=== PATIENT | male | born 1990 | race Caucasian/White ===

== ENCOUNTER 2021-06-01 23:57 | Inpatient (IN) | payer SELFPAY ==
[~2021-06-01] VITALS: Ht 190.5 cm; Wt 147.4 kg
--- NOTE | 2021-06-02 00:10 | NUR ---
PATIENT C/O RIGHT UPPER ABDOMINAL PAIN RADIATING TO THE RIGHT LOWER BACK, 2 x HOURS AGO. PATIENT TOOK 2 TABLETS OF TYLENOL 2 x HRS AGO WELL. PATIENT A/OX 4, RR EVEN AND UNLABORED, NO SOB NOTED. VSS, PATIENT CONNECTED TO MONITOR. WILL CONTINUE TO MONITOR.
[2021-06-02] MEDS ORDERED: ONDANSETRON HCL/PF 4 MG/2 ML VIAL IVP ONE (00:30)
[2021-06-02] MEDS ORDERED: MORPHINE SULFATE INJ 2 MG/ML DISP.SYRIN IV ONE ×2 (00:30→03:00)
[2021-06-02] MEDS ORDERED: IV NS 0.9% 1,000 ML BAG IV ONE (00:30)
[2021-06-02 00:37] LABS: BILIRUBIN,URINE Negative (NEGATIVE); COLOR,URINE YELLOW (YELLOW); LEUKOCYTE ESTERASE ,URINE Negative (NEGATIVE); NITRITE, URINE Negative (NEGATIVE); PROTEIN,URINE Negative (NEGATIVE); UGLUCOSE Negative (NEGATIVE)
[2021-06-02] MEDS ORDERED: MORPHINE SULFATE INJ 4 MG/ML DISP.SYRIN ONE ×2 (00:41→02:58)
[2021-06-02] MEDS ORDERED: ONDANSETRON HCL/PF 4 MG/2 ML VIAL ONE (00:41)
[2021-06-02 00:42] LABS: BASOPHILS % (AUTO) 0.6 % (0.0-2.0); EOSINOPHILS % (AUTO) 2.9 % (0.0-6.0); HEMATOCRIT 48 % (39-51); HEMOGLOBIN 16.3 g/dL (13.5-17.5); LYMPHOCYTES # (AUTO) 1.6 K/uL (0.8-4.8); LYMPHOCYTES % (AUTO) 20.5 % (20.0-44.0); MEAN CORPUSCULAR HGB CONC 34 g/dl (31.0-36.0); MEAN CORPUSCULAR VOLUME 90 fL (80-96); MONOCYTES # (AUTO) 0.5 K/uL (0.1-1.30); MONOCYTES % (AUTO) 6.3 % (2.0-12.0); NEUTROPHILS # (AUTO) 5.4 K/uL (1.8-8.9); NEUTROPHILS % (AUTO) 69.7 % (43.0-81.0); PLATELET COUNT (AUTO) 194 K/uL (150-450); RED BLOOD CELL COUNT(AUTO) 5.37 MIL/uL (4.5-6.0); WHITE BLOOD COUNT (AUTO) 7.7 K/uL (4.3-11.0)
[2021-06-02 00:50] LABS: CALCIUM, SERUM 8.7 mg/dL (8.5-10.1); CARBON DIOXIDE 28 mmol/L (21-32); CHLORIDE 102 mmol/L (98-107); CREATININE 1.3 mg/dL (0.6-1.3); GLUCOSE 118 mg/dL (74-106); SODIUM SERUM 138 mmol/L (136-145); UREA NITROGEN, BLOOD 17 mg/dL (7-18)
[2021-06-02 00:56] LABS: ALANINE AMINOTRANSFERASE 53 U/L (12-78); ALBUMIN 3.9 g/dL (3.4-5.0); ALKALINE PHOSPHATASE 60 U/L (46-116); ASPARTATE AMINOTRANSFERASE 23 U/L (15-37); BILIRUBIN,DIRECT 0.1 mg/dL (0.0-0.2); BILIRUBIN,TOTAL 0.3 mg/dL (0.2-1.0); LIPASE 140 U/L (73-393); TOTAL PROTEIN, SERUM 7.4 g/dL (6.4-8.2)
--- NOTE | 2021-06-02 01:16 | NUR ---
PATIENT TAKEN TO CT
--- NOTE | 2021-06-02 01:50 | NUR ---
US AT BEDSIDE
--- NOTE | 2021-06-02 02:49 | NUR ---
COVID SWAB RAPID COLLECTED AND SENT TO THE LAB.
--- NOTE | 2021-06-02 03:01 | NUR ---
CALLED NURSING SUP FOR BED
[2021-06-02] MEDS ORDERED: MAG HYDROX/AL HYDROX/SIMETH 30 ML UDC PO PRN (03:30)
[2021-06-02] MEDS ORDERED: ONDANSETRON HCL/PF 4 MG/2 ML VIAL IVP PRN (03:30)
[2021-06-02] MEDS ORDERED: PIPERACILLIN /TAZOBACTAM 3.375 G in IV D5W 50 ML IV SCH ×2 (03:46→12:00)
--- NOTE | 2021-06-02 04:22 | NUR ---
REPORT GIVEN TO ALESSANDRO GUPTA
[2021-06-02 04:35] VITALS: BP 148/89
--- NOTE | 2021-06-02 04:35 | NUR ---
PATIENT TRANSFERRED TO ROOM 327
[2021-06-02 05:11] VITALS: BP 148/89
--- NOTE | 2021-06-02 05:35 | NUR ---
MS RN NOTES REPORT GOTTEN FROM [facility]. PATIENT TRANSFERRED VIA STRETCHER. A/OX4. NO S/S OF APPARENT DISTRESS, TOLERATING ROOM AIR. PAIN TOLERABLE AT THE MOMENT. V/S FOLLOW: 148/89; P-73, RR-20, T- 97.8, AND SATING AT 99%. 325 LBS. WILL CONT. TO MONITOR.
[2021-06-02] MEDS: HYDROMORPHONE INJ 2 MG/ML DISP.SYRIN IV PRN ×2 (05:37→23:16)
[2021-06-02] MEDS: IV NS 0.9% 1,000 ML IV PRN (05:57)
--- NOTE | 2021-06-02 07:09 | NUR ---
MS RN CLOSING NOTE PATIENT IN BED WITH EYES CLOSED, EASY TO AROUSE. A/OX4. NO S/S OF APPARENT DISTRESS. PAIN MANAGED BY MEDICATION. IV NS RUNNING @75ML/HR. ALL NEEDS ATTENDED. CALL LIGHT WITHIN REACH. WILL ENDORSE CARE TO AM SHIFT RN.
--- NOTE | 2021-06-02 07:54 | NUR ---
RN MS OPENING NOTE PATIENT IS IN BED RESTING, PATIENT IS IN NO ACUTE DISTRESS. PATIENT IS ON ROOM AIR, SATURATING WELL. PATIENT IS KEPT NPO FOR NOW, UNTIL FURTHER ORDERS. SAFETY PRECAUTIONS ARE ON, BED IS LOCKED IN THE LOWEST POSITION, WITH SIDE RAILS UP, CALL LIGHT WITHIN REACH, WILL CONTINUE TO MONITOR CLOSELY.
[2021-06-02 08:00] VITALS: BP 133/77
[2021-06-02] MEDS: DOCUSATE SODIUM 100 MG CAPSULE PO SCH ×2 (08:19→17:00)
[2021-06-02] MEDS: PANTOPRAZOLE 40 MG VIAL IV SCH (08:19)
[2021-06-02] MEDS: PIPERACILLIN /TAZOBACTAM 3.375 G in IV D5W 100 ML IV SCH ×2 (10:07→17:20)
[2021-06-02 16:00] VITALS: BP 124/69
--- NOTE | 2021-06-02 18:36 | NUR ---
RN MS CLOSING NOTE PATIENT IS IN BED RESTING, PATIENT IS IN NO ACUTE DISTRESS. PATIENT IS ON ROOM AIR, SATURATING WELL. PATIENT IS KEPT NPO FOR NOW, UNTIL FURTHER ORDERS. SAFETY PRECAUTIONS ARE ON, BED IS LOCKED IN THE LOWEST POSITION, WITH SIDE RAILS UP, CALL LIGHT WITHIN REACH, ENDORSE PATIENT TO HEATING ELEMENT BUILDER NURSE.
--- NOTE | 2021-06-02 19:10 | NUR ---
NM: HIDA SCAN WAS COMPLETED. TECH:RB
[2021-06-02 20:00] VITALS: BP 139/91
--- NOTE | 2021-06-02 20:00 | NUR ---
Patient is A&Ox4. C/o only mild abdominal pain at this time 02/07 reports as tolerable. IVF infusing to L hand #20G. Nuclear medicine called to read NM HIDA "consistent with cystic duct obstruction and acute cholecystitis". MD Sanders then called with results with new order for Laparoscopic cholecystectomy possible open 06/03 at 0730. Notified patient, initiate consents.
[2021-06-03] MEDS: PIPERACILLIN /TAZOBACTAM 3.375 G in IV D5W 100 ML IV SCH ×3 (01:53→16:59)
[2021-06-03] MEDS: HYDROMORPHONE INJ 2 MG/ML DISP.SYRIN IV PRN (03:39)
[2021-06-03] MEDS: IV NS 0.9% 1,000 ML IV PRN (06:41)
--- NOTE | 2021-06-03 06:54 | NUR ---
Patient is A&Ox4. VSS. Been NPO for more than 24 hours. Abdominal pain relieved by PRN dilaudid. Tolerating IV ABX and fluids well. No overnight events. #20G to L hand patent and intact. Bs in AM 106. Checklist and consents completed.
[2021-06-03] MEDS ORDERED: ANESTHESIA TRAY IN PYXIS 1 EA TRAY MC ONE (07:05)
[2021-06-03] MEDS ORDERED: BUPIVACAINE MPF 0.5% W/EPI INJ 30 ML VIAL ONE (07:05)
[2021-06-03] MEDS ORDERED: LIDOCAINE 1% INJ 50 ML MDV IJ ONE (07:05)
[2021-06-03 07:17] LABS: BASOPHILS % (AUTO) 0.6 % (0.0-2.0); EOSINOPHILS % (AUTO) 2.5 % (0.0-6.0); HEMATOCRIT 49 % (39-51); HEMOGLOBIN 16.3 g/dL (13.5-17.5); LYMPHOCYTES % (AUTO) 15.1 % (20.0-44.0); MEAN CORPUSCULAR HGB CONC 34 g/dl (31.0-36.0); MEAN CORPUSCULAR VOLUME 92 fL (80-96); MONOCYTES # (AUTO) 0.7 K/uL (0.1-1.30); MONOCYTES % (AUTO) 10.2 % (2.0-12.0); NEUTROPHILS # (AUTO) 4.7 K/uL (1.8-8.9); NEUTROPHILS % (AUTO) 71.6 % (43.0-81.0); PLATELET COUNT (AUTO) 187 K/uL (150-450); WHITE BLOOD COUNT (AUTO) 6.6 K/uL (4.3-11.0)
[2021-06-03] MEDS ORDERED: HYDROMORPHONE INJ 2 MG/ML DISP.SYRIN ONE (07:21)
[2021-06-03] MEDS ORDERED: ROCURONIUM BROMIDE 50 MG/5 ML ONE (07:21)
--- NOTE | 2021-06-03 07:23 | NUR ---
RN OPENING NOTE PATIENT RECEIVED IN BED AO X 4, ABLE TO RESPONDS ALL STIMULI. PATIENT LEFT PROCEDURE, KEEP NPO. NO S/S OF DISTRESS OBSERVED. SKIN IS WARM TO TOUCH, KEEP CLEAN/DRY. RESPIRATORY EVEN AND UNLABORED ON ROOM AIR. WILL CONTINUE TO MONITOR.
[2021-06-03 07:32] LABS: CALCIUM, SERUM 8.6 mg/dL (8.5-10.1); CREATININE 1.4 mg/dL (0.6-1.3); POTASSIUM 3.8 mmol/L (3.5-5.1)
[2021-06-03] MEDS ORDERED: BACITRACIN ZINC OINT PACKET 1 EA PACKET TP ONE (09:02)
--- NOTE | 2021-06-03 09:40 | NUR ---
PATIENT BACK FROM PROCEDURE AND STABLE VITAL SING, RECEIVED REPORT BY PAT/RN.
[2021-06-03 09:45] VITALS: BP 126/63
[2021-06-03 09:54] VITALS: BP 137/90
[2021-06-03] MEDS: PANTOPRAZOLE 40 MG VIAL IV SCH (10:13)
[2021-06-03] MEDS: DOCUSATE SODIUM 100 MG CAPSULE PO SCH ×2 (10:13→16:58)
[2021-06-03 16:38] VITALS: BP 120/76
[2021-06-03] MEDS: HYDROCODONE/APAP 5/325MG TABLET PO PRN (17:38)
--- NOTE | 2021-06-03 18:08 | NUR ---
RN CLOSING NOTE PATIENT IN BED RESTING, NO S/S OF DISTRESS OBSERVED. RESPIRATORY EVEN AND UNLABORED ON ROOM AIR. PATIENT S/P LAP. CHOLECYSTECTOMY, NO S/S OF ADVERSE REACTION NOTICED, 40 CC SANGUINEOUS DRAINAGE OUT PUT FROM GLYNN ON RLQ. SKIN IS WARM TO TOUCH KEEP CLEAN/DRY INTACT IV SITE. KEPT ELEVATED HOB FOR ENSURE AIRWAY AND ASPIRATION PRECAUTION, ALSO LOWEST BED POSITION FOR SAFETY. CALL LIGHT WITHIN REACH, WILL ENDORSE HEAD WOOD GRINDER.
[2021-06-03 20:00] VITALS: BP_SYST 127; BP_SYST 131; BP_DIAS 68; BP_DIAS 78
--- NOTE | 2021-06-03 20:00 | NUR ---
Patient is awake, alert and oriented. States he is in pain but trying to tolerate it right now. GLYNN drain to R lower abdomen draining small amount of sanguineous output. No other issues at this time.
--- NOTE | 2021-06-03 20:56 | NUR ---
Patient states that his abdominal pain is increasing and wants to have something stronger than [place] at bedtime because that is when his pain usually gets the worst. Obtained order from MD for dilaudid 1mg IV q6h PRN for severe pain.
[2021-06-03] MEDS: HYDROMORPHONE 1 MG/1 ML DISP.SYRIN IV PRN (22:00)
[2021-06-04] MEDS: PIPERACILLIN /TAZOBACTAM 3.375 G in IV D5W 100 ML IV SCH ×2 (02:33→10:28)
[2021-06-04] MEDS: HYDROCODONE/APAP 5/325MG TABLET PO PRN ×2 (02:49→09:37)
[2021-06-04 06:05] LABS: BASOPHILS % (AUTO) 0.5 % (0.0-2.0); HEMATOCRIT 45 % (39-51); LYMPHOCYTES # (AUTO) 1.5 K/uL (0.8-4.8); LYMPHOCYTES % (AUTO) 15.7 % (20.0-44.0); MEAN CORPUSCULAR HGB CONC 33 g/dl (31.0-36.0); MEAN CORPUSCULAR VOLUME 92 fL (80-96); MONOCYTES # (AUTO) 0.9 K/uL (0.1-1.30); MONOCYTES % (AUTO) 9.1 % (2.0-12.0); NEUTROPHILS % (AUTO) 73.7 % (43.0-81.0); PLATELET COUNT (AUTO) 187 K/uL (150-450); RED BLOOD CELL COUNT(AUTO) 4.91 MIL/uL (4.5-6.0); WHITE BLOOD COUNT (AUTO) 9.5 K/uL (4.3-11.0)
--- NOTE | 2021-06-04 06:17 | NUR ---
MS RN CLOSING NOTES Patient sleeping well throughout night easy to rouse. A&Ox4. VSS. Woke up in pain once. Pain had been managed with PRN [place] and dilaudid. Taught patient to guard stomach with pillow if he needed to cough, laugh, or breathe deeply to prevent dehiscence and increased pain. Draining scant amount of serosanguineous fluid at this time.
[2021-06-04] MEDS: HYDROMORPHONE 1 MG/1 ML DISP.SYRIN IV PRN (06:29)
--- NOTE | 2021-06-04 06:33 | NUR ---
Dr. Sanders came by removed patients GLYNN drain and dressings covering lauren, instructed patient to leave open to air and come into his office outpatient in a week to have them removed.
--- NOTE | 2021-06-04 07:07 | NUR ---
MS RN OPENING NOTE RECEIVED PATIENT AWAKE IN BED. A/O X 4. NO SOB NOTED, NO C/O OF PAIN AT THIS TIME, NO S/O ANY ACUTE DISTRESS NOTED. BREATHING EVEN AND UNLABORED. STABLE ON RA. IV ACCESS NOTED IN LEFT HAND G#20, INTACT, PATENT, AND FLUSHING WELL. SAFETY PRECAUTIONS IN PLACE, BED IN LOCKED LOWEST POSITION, SIDE RAILS UP, HOB ELEVATED, CALL LIGHT AND TABLE WITHIN REACH, WILL CONTINUE TO MONITOR
[2021-06-04 07:23] LABS: CALCIUM, SERUM 8.8 mg/dL (8.5-10.1); CREATININE 1.2 mg/dL (0.6-1.3); PHOSPHORUS 3.9 mg/dL (2.5-4.9); POTASSIUM 3.8 mmol/L (3.5-5.1); TOTAL PROTEIN, SERUM 6.7 g/dL (6.4-8.2)
[2021-06-04] MEDS ORDERED: PANTOPRAZOLE 40 MG TABLET.DR PO SCH (07:30)
[2021-06-04] MEDS: DOCUSATE SODIUM 100 MG CAPSULE PO SCH (08:31)
[2021-06-04 08:48] VITALS: BP 131/76
[2021-06-04] MEDS: IV NS 0.9% 1,000 ML IV PRN (09:05)
--- NOTE | 2021-06-04 09:38 | NUR ---
PT C/O OF TIGHT ABDOMINAL PAIN OF 4/10. PT NOTED GRIMACING. VS BP 131/76, HR 77, RR 20, T 98.1, SPO2 95%. PER PT REQUEST, NORCO 5-325MG PO Q4H PRN FOR PAIN ADMINISTERED PER ORDER. WILL CONTINUE TO MONITOR
[2021-06-04] MEDS ORDERED: METR500T PO (10:20)
[2021-06-04] MEDS ORDERED: CIPR-262 PO (10:20)
--- NOTE | 2021-06-04 13:23 | NUR ---
FASHION STYLING INTERN NOTED PT DISCHARGE HOME AT THIS TIME. PT MEDICALLY STABLE AND CLEARED FOR DISCHARGE BY DR BRIANNA DNP. ALL DISCHARGE INSTRUCTIONS PROVIDED TO PT AND MOTHER AT BEDSIDE. PT VERBALIZED UNDERSTANDING. PT KEPT CLEAN AND DRY. ALL BELONGINGS ACCOUNTED FOR, SIGNED AND WITH PATIENT. IV ACCESS REMOVED, PRESSURE APPLIED, SECURED WITH GAUZE AND TAPE, NO SIGN OF BLEEDING OR INFILTRATION NOTED, ID BAND REMOVED. PT LEFT UNIT IN STABLE CONDITION, TRANSPORTED BY WHEEL CHAIR TO [facility] BY NURSE. DROVE OFF WITH MOTHERDAVID, CHARGE NURSE AND DR BRIANNA DNP AWARE.
== END 2021-06-04 13:20 | disposition home or self-care (01) | DRG 418 ==
LOC: ER 06-02 00:01 → MED 06-02 03:42
PROVIDERS: ADMIT Nurse Practitioner Acute Care; ATTEND Nurse Practitioner Acute Care
PROC: 0FT44ZZ Resection of Gallbladder, Percutaneous Endoscopic Approach (ICD-10-PCS; principal; 2021-06-03)
DX: K80.01 Calculus of gallbladder with acute cholecystitis with obstruction (principal); D68.59 Other primary thrombophilia; Z98.890 Other specified postprocedural states; Z88.3 Allergy status to other anti-infective agents; Z91.018 Allergy to other foods; Z91.048 Other nonmedicinal substance allergy status; E66.01 Morbid (severe) obesity due to excess calories; K40.20 Bilateral inguinal hernia, without obstruction or gangrene, not specified as recurrent
CPT/HCPCS: 36415; 76705-TC; 78226; 80048-TC; 80053-TC; 80076-TC; 82962-TC; 83605-TC; 83690-TC; 83735-TC; 84100-TC; 84484-TC; 85025-TC; 87070-TC; 87075-TC; 87081-TC; A9537; C9113; C9803; G0378; J0330; J1100; J1170; J1885; J2270; J2405; J2543; J2704; J3490; J7030; J7060